=== PATIENT | female | born 1965 | race Caucasian/White ===

== ENCOUNTER → 2019-11-25 | Outpatient (CLI) | payer SELFPAY ==
[~2019-11-25] MED LIST: ACHD5005 PO; CEPH250C PO; DEXL60CA PO; DOCU100C37 PO; IBUP-1773 PO; INSU100I14 SQ; INSU100I29 SQ; IRON150C3 PO; LISI-552 PO; LURA20TA PO; METR-145 PO
--- NOTE | 2019-11-25 12:26 | Diagnostic Imaging Report ---
INDICATION: Rolled foot. Reported history of recent fracture of the 5th metatarsal.. TECHNIQUE: Three views of the left foot. CORRELATION STUDY: None. FINDINGS: There is overlying compression bandage or dressing material over the foot and lower leg. There is presence of a transversely oriented relatively nondisplaced fracture of the proximal 5th metatarsal. The alignment appears to be anatomic. No significant bridging callus formation. The remaining osseous structures otherwise appear to be intact with some mild bony demineralization present. Incidental note is made of a bipartite medial sesamoid bone of the great toe, a normal variant. There is presence of soft tissue swelling given the apparent overlying bandage material. IMPRESSION: Nondisplaced fracture involving the base of the 5th metatarsal. Associated soft tissue swelling. Dictated by: Dictated on workstation # [id number]
== END ==
LOC: RAD FS 10:26
PROVIDERS: ATTEND Nurse Practitioner
DX: S92.355A Nondisplaced fracture of fifth metatarsal bone, left foot, initial encounter for closed fracture (principal); X58.XXXA Exposure to other specified factors, initial encounter
CPT/HCPCS: 73630

== ENCOUNTER → 2019-12-16 | Outpatient (CLI) | payer SELFPAY ==
--- NOTE | 2019-12-16 09:21 | Diagnostic Imaging Report ---
INDICATION: Follow-up foot fracture. COMPARISON: 11/25/2019 FINDINGS: 3 radiographic views of the left foot were obtained and again show nonacute nondisplaced fracture of the proximal 5th metatarsal. There does appear to be intra-articular extension. Fracture line remains conspicuous. There is no significant bridging callus formation. Fracture fragments are in stable alignment. No new acute fracture or dislocation left foot is identified. Joint spaces are maintained. No unexpected radiopaque foreign bodies are seen. IMPRESSION: 1. Stable nonacute fracture of the proximal 5th metatarsal as described above. Dictated by: Dictated on workstation # [id number]
== END ==
LOC: RAD FS 08:36
PROVIDERS: ATTEND Nurse Practitioner
DX: S92.355D Nondisplaced fracture of fifth metatarsal bone, left foot, subsequent encounter for fracture with routine healing (principal)
CPT/HCPCS: 73630

== ENCOUNTER → 2020-01-06 | Outpatient (CLI) | payer SELFPAY ==
--- NOTE | 2020-01-06 09:45 | Diagnostic Imaging Report ---
EXAMINATION: Left foot at 8:31 AM INDICATION: Follow-up fracture Three views were obtained. The prior exam of 12/16/2019 noted transverse nondisplaced fracture of the base of the 5th metatarsal. That fracture line is still present. There is only minimal healing callus formation about the fracture site. No other fracture or acute bony abnormality is identified. The soft tissues are unremarkable. IMPRESSION: 1. The fracture involving the base of the 5th metatarsal seen on the prior exam remains nondisplaced. However, there is only minimal healing callus formation present. A follow-up study would be recommended for continued evaluation. 2. There is no acute bony abnormality noted. Dictated by: Dictated on workstation # [id number]
== END ==
LOC: RAD FS 08:21
PROVIDERS: ATTEND Nurse Practitioner
DX: S92.355D Nondisplaced fracture of fifth metatarsal bone, left foot, subsequent encounter for fracture with routine healing (principal)
CPT/HCPCS: 73630

== ENCOUNTER → 2020-02-03 | Outpatient (CLI) | payer OTHER ==
--- NOTE | 2020-02-03 12:52 | Diagnostic Imaging Report ---
INDICATION: Postmenopausal state. COMPARISON: None available FINDINGS: AP Spine L1-L4: [BMD (g/cm2): 0.667] [T-Score: -4.4] [Z-Score: -4.4] [BMD Previous: NA] [BMD % Change: NA] LT Hip Neck: [BMD (g/cm2): 0.896] [T-Score: -1.0] [Z-Score: -0.5] LT Hip Total: [BMD (g/cm2):0.891] [T-Score:-0.9] [Z-Score: -0.8] [BMD Previous: NA] [BMD % Change: NA] RT Hip Neck: [BMD (g/cm2):0.89] [T-Score:-1.1] [Z-Score:-0.5] RT Hip Total: [BMD (g/cm2):0.841] [T-score:-1.3] [Z-Score:-1.2] [BMD Previous:NA] [BMD % Change:NA] *Indicates significant change from prior examination based on 95% confidence level. World Health Organization criteria for BMD interpretation classify patients as Normal (T-score at or above -1.0), Osteopenic (T-score between -1.0 and -2.5) or Osteoporotic (T-score at or below -2.5). LIMITATIONS AND MODIFICATION: None. FRACTURE RISK (FRAX SCORE): The ten year probability of (%): Major Osteoporotic Fracture: [8.7] Hip Fracture: [0.5] IMPRESSION: 1. Osteoporosis. 2. Baseline examination. 3. See below National Osteoporosis Foundation guidelines on when to potentially initiate pharmacologic therapy. Based on the National Osteoporosis Foundation Guidelines, pharmacologic treatment should be initiated in any of the following, unless clinical conditions suggest otherwise: * Any patient with prior fragility fracture of the hip or vertebrae. A spine fracture indicates 5X risk for subsequent spine fracture and 2X risk for subsequent hip fracture. * Osteoporosis (T-score <-2.5). * Postmenopausal women and men age 50 and older with low bone mass/osteopenia (T-score between -1.0 and -2.5) by DXA and 10-year major osteoporotic fracture greater than 20% or a 10-year probability of hip fracture greater than 3%. These fracture risks are supplied above in the FRAX score, if applicable. * Clinician judgement and/or patient preferences may indicate treatment for people with 10-year fracture probabilities above or below these levels. Dictated by: Dictated on workstation # [id number]
== END ==
LOC: RAD 10:54
PROVIDERS: ATTEND Family Medicine
DX: Z13.820 Encounter for screening for osteoporosis (principal); M81.0 Age-related osteoporosis without current pathological fracture; Z78.0 Asymptomatic menopausal state
CPT/HCPCS: 77080

== ENCOUNTER → 2020-02-12 | Outpatient (CLI) | payer OTHER | LOC: RAD FS 13:13 | PROVIDERS: ATTEND Nurse Practitioner | DX: S92.355D Nondisplaced fracture of fifth metatarsal bone, left foot, subsequent encounter for fracture with routine healing (principal) | CPT/HCPCS: 73630 ==

== ENCOUNTER 2022-08-31 10:28 | Emergency (ER) | payer SELFPAY ==
[~2022-08-31] VITALS: Ht 157 cm; Wt 106.0 kg
[~2022-08-31 10:28] MED LIST changes: -INSU100I29 SQ; +INSU100I30 SQ; -LISI-552 PO; +LISI20TA26 PO
[2022-08-31] MEDS ORDERED: NS IV 1000 ML 1,000 ML IV STA (10:55)
--- NOTE | 2022-08-31 10:57 | ED General ---
General Chief Complaint: General Problems/Pain Stated Complaint: NINO LEG PAIN/CRAMPING/LEFT FLANK PAIN Source of Information: Patient, Family (), Old Records Exam Limitations: No Limitations History of Present Illness Date Seen by Provider: August 31, 2022 Time Seen by Provider: 10:50 Initial Comments 57-year-old female presents to the emergency department today for bilateral leg cramping, pain and pain in her left lateral chest. She states symptoms started last night and have been progressive throughout the night. She does have some pain in her legs occasionally with low potassium but she states this has not happened in quite some time. She is slightly nauseated as well. Regarding her chest pain, she is got pain in her left lateral chest described as sharp stabbing and pinpoint in 1 area. No aggravating or alleviating factors. No radiation. She has not tried anything for her symptoms. She denies any fevers or chills but does have some fatigue. She had some blood drawn at the [facility] clinic this morning for an upcoming appointment on Sunday but did not see a provider. She did not take any of her daily medications this morning secondary to nausea All other systems reviewed and negative except documented per HPI. Voice recognition software was used to help create this chart Allergies and Home Medications Allergies Uncoded Allergies: ARTIFICIAL SWEETENERS (Allergy, Intermediate, NAUSEA, 01/25/15) NAUSEA, DIARRHEA,ABD CRAMPING Patient Home Medication List Home Medication List Reviewed: Yes Cephalexin (Cephalexin) 250 Mg Capsule, 500 MG PO QID Prescribed by: DANISH GONZALEZ on 01/28/15 08 Dexlansoprazole (Dexilant) 60 Mg Ranjit., 60 MG PO, (Reported) Entered as Reported by: HORTENSIA CORDERO on 01/25/15 152 Docusate Sodium (Docusate Sodium) 100 Mg Capsule, 100 MG PO BID PRN for CO NSTIPATION Prescribed by: DANISH GONZALEZ on 01/28/15 08 Hydrocodone Bit/Acetaminophen (Lortab 5 Mg Tablet) 1 Each Tablet, 2 TAB PO Q4H PRN for PAIN Prescribed by: DANISH GONZALEZ on 01/28/15 08 Ibuprofen (Ibuprofen) 600 Mg Tablet, 600 MG PO Q6HR Prescribed by: DANISH GONZALEZ on 01/28/15 08 Insulin Aspart (Novolog Flexpen) 300 Units/3 Ml Solution, 15 UNITS SQ AC, (Reported) Entered as Reported by: HORTENSIA CORDERO on 01/25/15 1528 Insulin Detemir (Levemir Flextouch) 100 Unit/1 Ml Insuln.pen, 50 UNIT SQ HS, (Reported) Entered as Reported by: HORTENSIA CORDERO on 01/25/15 1525 Iron Polysaccharide Complex (Ferrex 150) 150 Mg Capsule, 150 MG PO BID WITH MEALS Prescribed by: DANISH GONZALEZ on 01/28/15 0809 Lisinopril (Lisinopril) 20 Mg Tablet, 20 MG PO DAILY, (Reported) Entered as Reported by: HORTENSIA CORDERO on 01/25/15 1522 Lurasidone HCl (Latuda) 20 Mg Tablet, 40 MG PO DAILY, (Reported) Entered as Reported by: HORTENSIA CORDERO on 01/25/15 1533 Metronidazole (Metronidazole) 500 Mg Tablet, 500 MG PO TID Prescribed by: DANISH GONZALEZ on 01/28/15 0809 Review of Systems Review of Systems Constitutional: see HPI Past Fcrhjrt-Dnehnz-Wrtnem Hx Patient Social History Tobacco Use?: No Use of E-Cig and/or Vaping dev: No Alcohol Use?: No Immunizations Up To Date Tetanus Booster (TDap): Unknown PED Vaccines UTD: Yes Past Medical History Asthma, Chronic Bronchitis Currently Using CPAP: No Currently Using BIPAP: No Reproductive Disorders: Yes Female Reproductive Disorders: Menstrual Problems Sexually Transmitted Disease: Yes HIV/AIDS: No UTI-Chronic Abdominal Hernia, Gastroesophageal Reflux, Gall Bladder Disease Arthritis, Fractures Diabetes, Insulin dep Cataract Loss of Vision: Denies Hearing Impairment: Hard of Hearing Anxiety, Depression Herpes Adverse Reaction/Blood Tranf: No Family Medical History Arthritis 19 MOTHER Asthma MATERNAL GRANDFATHER Cardiovascular disease 19 MOTHER (5 BYPASS) MATERNAL GRANDFATHER (4 BYPASS) Cataracts 19 MOTHER MATERNAL GRANDFATHER Completed stroke MATERNAL GRANDMOTHER Coronary thrombosis 19 MOTHER MATERNAL GRANDFATHER Deafness or hearing loss MATERNAL GRANDFATHER Diabetes mellitus 19 MOTHER (TYPE 2) MATERNAL GRANDFATHER Drug abuse 19 MOTHER G8 BROTHER Glaucoma 19 MOTHER MATERNAL GRANDFATHER Hypercholesterolemia MATERNAL GRANDFATHER Hypertension 19 MOTHER MATERNAL GRANDFATHER Myocardial infarction 19 MOTHER Neoplasm 19 MOTHER (CERVICAL AND BREAST AND LUNG) Osteoporosis 19 MOTHER Respiratory disorder 19 MOTHER (EMPHYSEMA AND COPD) Severe allergy 19 MOTHER (SEVERE ALLERGY TO ARTIFICIAL SWEETENERS) Physical Exam Vital Signs Vital Signs - First Documented 08/31/22 10:48 Temp 35.8 Pulse 128 Resp 20 B/P (MAP) 161/67 (98) Pulse Ox 94 O2 Delivery Room Air Capillary Refill : Height, Weight, BMI Height: 5'2.00" Weight: 134lbs. 0.4oz. [id number]; BMI Method: General Appearance: No Apparent Distress, WD/WN Eyes: Bilateral Eye Normal Inspection, Bilateral Eye PERRL, Bilateral Eye EOMI HEENT: Normal ENT Inspection, Pharynx Normal Neck: Full Range of Motion, Normal Inspection, Non Tender, Supple Respiratory: Chest Non Tender, Lungs Clear, Normal Breath Sounds, No Accessory Muscle Use, No Respiratory Distress Cardiovascular: No Murmur, Normal Peripheral Pulses, Tachycardia Gastrointestinal: Normal Bowel Sounds, No Organomegaly, No Pulsatile Mass, Non Tender, Soft Back: Normal Inspection, No CVA Tenderness, No Vertebral Tenderness Extremity: Normal Capillary Refill, Normal Inspection, Normal Range of Motion, Non Tender, No Calf Tenderness Neurologic/Psychiatric: Alert, Oriented x3, Normal Mood/Affect Skin: Normal Color, Warm/Dry Focused Exam Lactate Level 08/31/22 13:00: Lactic Acid Level Laboratory Tests Test 08/31/22 13:00 Progress/Results/Core Measures Suspected Sepsis SIRS Temperature: Pulse: Respiratory Rate: Laboratory Tests 08/31/22 11:16: White Blood Count 8.9 Blood Pressure / Mean: 08/31/22 13:00: Laboratory Tests 08/31/22 11:16: Creatinine 0.69, Platelet Count 163, Total Bilirubin 0.8 Results/Orders Lab Results Laboratory Tests Test 08/31/22 10:35 08/31/22 11:16 08/31/22 13:00 Range/Units Urine Color YELLOW Urine Clarity CLEAR Urine pH 6.0 5-9 Urine Specific Vera <=1.005 1.016-1.022 Urine Protein NEGATIVE NEGATIVE Urine Glucose (UA) 3+ H NEGATIVE Urine Ketones NEGATIVE NEGATIVE Urine Nitrite NEGATIVE NEGATIVE Urine Bilirubin NEGATIVE NEGATIVE Urine Urobilinogen 0.2 < = 1.0 MG/DL Urine Leukocyte Esterase NEGATIVE NEGATIVE Urine RBC (Auto) TRACE-I H NEGATIVE Urine RBC RARE /HPF Urine WBC 0-2 /HPF Urine Squamous Epithelial Cells 2-5 /HPF Urine Crystals NONE /LPF Urine Bacteria NEGATIVE /HPF Urine Casts NONE /LPF Urine Mucus NEGATIVE /LPF Urine Yeast FEW H /HPF Urine Culture Indicated NO White Blood Count 8.9 4.3-11.0 10^3/uL Red Blood Count 5.13 H 3.80-5.11 10^6/uL Hemoglobin 14.6 11.5-16.0 g/dL Hematocrit 43 35-52 % Mean Corpuscular Volume 83 80-99 fL Mean Corpuscular Hemoglobin 29 25-34 pg Mean Corpuscular Hemoglobin Concent 34 32-36 g/dL Red Cell Distribution Width 14.1 10.0-14.5 % Platelet Count 163 130-400 10^3/uL Mean Platelet Volume 9.4 9.0-12.2 fL Immature Granulocyte % (Auto) 0 % Neutrophils (%) (Auto) 87 H 42-75 % Lymphocytes (%) (Auto) 4 L 12-44 % Monocytes (%) (Auto) 8 0-12 % Eosinophils (%) (Auto) 0 0-10 % Basophils (%) (Auto) 0 0-10 % Neutrophils # (Auto) 7.8 1.8-7.8 10^3/uL Lymphocytes # (Auto) 0.4 L 1.0-4.0 10^3/uL Monocytes # (Auto) 0.7 0.0-1.0 10^3/uL Eosinophils # (Auto) 0.0 0.0-0.3 10^3/uL Basophils # (Auto) 0.0 0.0-0.1 10^3/uL Immature Granulocyte # (Auto) 0.0 0.0-0.1 10^3/uL Neutrophils % (Manual) 44 % Lymphocytes % (Manual) 4 % Monocytes % (Manual) 10 % Metamyelocytes % 1 % Band Neutrophils 41 % Platelet Estimate NORMAL Polychromasia SLIGHT Macrocytosis SLIGHT Sodium Level 132 L 135-145 MMOL/L Potassium Level 3.5 L 3.6-5.0 MMOL/L Chloride Level 97 L 98-107 MMOL/L Carbon Dioxide Level 18 L 21-32 MMOL/L Anion Gap 17 H 5-14 MMOL/L Blood Urea Nitrogen 8 7-18 MG/DL Creatinine 0.69 0.60-1.30 MG/DL Estimat Glomerular Filtration Rate 102 BUN/Creatinine Ratio 12 Glucose Level 282 H 70-105 MG/DL Calcium Level 10.2 H 8.5-10.1 MG/DL Corrected Calcium 10.3 H 8.5-10.1 MG/DL Total Bilirubin 0.8 0.1-1.0 MG/DL Aspartate Amino Transf (AST/SGOT) 43 H 5-34 U/L Alanine Aminotransferase (ALT/SGPT) 26 0-55 U/L Alkaline Phosphatase 112 40-136 U/L Troponin I < 0.30 <0.30 NG/ML Total Protein 7.3 6.4-8.2 GM/DL Albumin 3.9 3.2-4.5 GM/DL My Orders Orders - MASSIMO MARTINEZ DO Cbc With Automated Diff (08/31/22 10:55) Comprehensive Metabolic Panel (08/31/22 10:55) Ua Culture If Indicated (08/31/22 10:55) Iv/Invasive Line Insertion .IV INSERT (08/31/22 10:55) Ondansetron Injection (Zofran Injectio (08/31/22 11:00) Ns Iv 1000 Ml (Sodium Chloride 0.9%) (08/31/22 10:55) Ekg Tracing (08/31/22 10:57) Troponin I Fs (08/31/22 10:57) Chest Pa/Lat (2 View) (08/31/22 10:57) Ondansetron Injection (Zofran Injectio (08/31/22 11:13) Ct Chest W (08/31/22 11:20) Manual Differential (08/31/22 11:16) Iohexol Injection (Omnipaque 350 Mg/Ml 1 (08/31/22 12:00) Received Contrast (Hold Metformin- Contr (08/31/22 12:00) Ns (Ivpb) (Sodium Chloride 0.9% Ivpb Bag (08/31/22 12:00) Lactic Acid Analyzer (08/31/22 12:49) Blood Culture (08/31/22 12:49) Levofloxacin 500 Mg/100 Ml Iv (Levaquin (08/31/22 13:00) Medications Given in ED Current Medications Medications Dose Ordered Sig/Bobo Route Start Time Stop Time Status Last Admin Dose Admin Iohexol 100 ml ONCE ONCE IV 08/31/22 12:00 08/31/22 12:01 DC 08/31/22 11:59 75 ML Levofloxacin/ Dextrose 100 ml @ 100 mls/hr ONCE ONCE IV 08/31/22 13:00 08/31/22 13:59 08/31/22 13:08 100 MLS/HR Ondansetron HCl 8 mg ONCE ONCE IVP 08/31/22 11:00 08/31/22 11:01 DC 08/31/22 11:12 8 MG Sodium Chloride 100 ml ONCE ONCE IV 08/31/22 12:00 08/31/22 12:01 DC 08/31/22 11:59 100 ML Vital Signs/I&O 08/31/22 10:48 Temp 35.8 Pulse 128 Resp 20 B/P (MAP) 161/67 (98) Pulse Ox 94 O2 Delivery Room Air Capillary Refill : ECG Comment Sinus tachycardia 132 bpm. Left axis deviation. Poor R wave progression in precordial leads. No ST or T wave abnormalities. No ectopy. Departure Communication (Admissions) The patient is hemodynamically stable. Chest x-ray initially shows possible mass in the left lower lobe versus pneumonia. Is very rounded so went and ordered a CT scan. This shows multifocal pneumonia worse on the left side which explains the mass. With that of ordered lactate and cultures. I offered her admission after regular Zithromax and Rocephin and she declined stating she wants to go home. With that I canceled Zithromax and Rocephin we will give her a dose of IV Levaquin here and discharge her with p.o. Levaquin. She is asking for something for pain. I offered her ibuprofen or Tylenol for her body aches and she states "I can take that at home." Advised we can give her dose while she is waiting for her antibiotics to complete and she declines. Her nausea is improved with the IV Zofran provided. Her heart rate is improved somewhat with the IV fluids, down from 130 to 112. Impression Primary Impression: Community acquired pneumonia Qualified Codes: J18.9 - Pneumonia, unspecified organism Disposition: HOME, SELF-CARE Condition: Stable Admissions Decision to Admit Reason: Admit from ER (General) Departure-Patient Inst. Referrals: SELF,RHODA GIFFORD (PCP/Family) Primary Care Physician Patient Instructions: Pneumonia, Adult ED Add. Discharge Instructions: You have opted not to stay in the emergency department. You do have pneumonia that is worse on the left side but slightly on the right side as well. Take the antibiotics as prescribed until they are gone. You were given your first dose here in the emergency department. Use the nausea medicine as needed by dissolving it under your tongue. Increase your fluids at home and rest. Use ibuprofen and Tylenol as needed for body aches or pain. Urgency department for any severe concerns, specifically if you develop any severe shortness of breath. I recommend you follow-up with your primary doctor in the next 48 hours All discharge instructions reviewed with patient and/or family. Voiced understanding. Scripts Ondansetron (Ondansetron Odt) 8 Mg Tab.rapdis 8 MG SL Q6H PRN for NAUSEA/VOMITING for 5 Days, #20 TAB Prov: MASSIMO MARTINEZ DO 08/31/22 Levofloxacin (Levofloxacin) 500 Mg Tablet 500 MG PO DAILY for 7 Days, #7 TAB Prov: MASSIMO MARTINEZ DO 08/31/22 MASSIMO MARTINEZ DO August 31, 2022 10:57
[2022-08-31] MEDS ORDERED: ONDANSETRON 4 MG/2 ML (SDV) Z0FRAN IVP ONE (11:00)
[2022-08-31 11:02] LABS: BILIRUBIN,URINE NEGATIVE (NEGATIVE); CLARITY,URINE CLEAR; COLOR,URINE YELLOW; GLUCOSE, URINE (UA) 3+ (NEGATIVE); KETONES,URINE NEGATIVE (NEGATIVE); LEUKOCYTE ESTERASE ,URINE NEGATIVE (NEGATIVE); NITRITE,URINE NEGATIVE (NEGATIVE); PROTEIN,URINE NEGATIVE (NEGATIVE)
[2022-08-31] MEDS ORDERED: ONDANSETRON 4 MG/2 ML (SDV) Z0FRAN ONE (11:13)
[2022-08-31 11:14] LABS: BACTERIA,URINE NEGATIVE /HPF; RBC,URINE RARE /HPF; WBC,URINE 0-2 /HPF; YEAST,URINE FEW /HPF
--- NOTE | 2022-08-31 11:16 | Diagnostic Imaging Report ---
INDICATION: Chest pain. TECHNIQUE: PA and lateral chest obtained at 11:04 a.m. FINDINGS: Heart is normal in size. There is a focal opacity in the left lateral base which is most likely due to infiltrate, recommend follow-up until resolution to exclude underlying mass. There is no pneumothorax or pleural fluid. IMPRESSION: Left basilar opacity may represent infiltrate, underlying mass is difficult to exclude. Recommend follow-up radiographs to assure resolution. Dictated by: Dictated on workstation # [id number]
[2022-08-31 11:36] LABS: BASOPHILS % (AUTO) 0 % (0-10); EOSINOPHILS % (AUTO) 0 % (0-10); HEMATOCRIT 43 % (35-52); HEMOGLOBIN 14.6 g/dL (11.5-16.0); LYMPHOCYTES # (AUTO) 0.4 10^3/uL (1.0-4.0); LYMPHOCYTES % (AUTO) 4 % (12-44); MEAN CORPUSCULAR HEMOGLOBIN 29 pg (25-34); MEAN CORPUSCULAR HGB CONC 34 g/dL (32-36); MEAN CORPUSCULAR VOLUME 83 fL (80-99); MEAN PLATELET VOLUME 9.4 fL (9.0-12.2); MONOCYTES # (AUTO) 0.7 10^3/uL (0.0-1.0); MONOCYTES % (AUTO) 8 % (0-12); NEUTROPHILS # (AUTO) 7.8 10^3/uL (1.8-7.8); NEUTROPHILS % (AUTO) 87 % (42-75); PLATELET COUNT 163 10^3/uL (130-400); WHITE BLOOD COUNT 8.9 10^3/uL (4.3-11.0)
[2022-08-31 11:47] LABS: POTASSIUM 3.5 MMOL/L (3.6-5.0); SODIUM 132 MMOL/L (135-145)
[2022-08-31 11:48] LABS: ALANINE AMINOTRANSFERASE 26 U/L (0-55); ALBUMIN 3.9 GM/DL (3.2-4.5); ALKALINE PHOSPHATASE 112 U/L (40-136); BILIRUBIN,TOTAL 0.8 MG/DL (0.1-1.0); BUN/CREATININE RATIO 12; CALCIUM 10.2 MG/DL (8.5-10.1); CARBON DIOXIDE 18 MMOL/L (21-32); CHLORIDE 97 MMOL/L (98-107); CREATININE SERUM 0.69 MG/DL (0.60-1.30); GFR ESTIMATED 102; GLUCOSE 282 MG/DL (70-105); TOTAL PROTEIN 7.3 GM/DL (6.4-8.2)
[2022-08-31] MEDS ORDERED: NS 100 ML (IVPB) BAG IV ONE (12:00)
[2022-08-31] MEDS ORDERED: IOHEXOL 350 MG/ML 100 ML (OMNIPAQUE 350) VIAL IV ONE (12:00)
[2022-08-31] MEDS ORDERED: HOLD METFORMIN - RECEIVED CONTRAST 20 ML VIAL IV SCH (12:00)
[2022-08-31 12:06] LABS: BAND NEUTROPHILS 41 %; LYMPHOCYTES % (MANUAL) 4 %; METAMYELOCYTES % 1 %; MONOCYTES % (MANUAL) 10 %; NEUTROPHILS % (MANUAL) 44 %; PLATELET ESTIMATE NORMAL; POLYCHROMASIA SLIGHT
--- NOTE | 2022-08-31 12:44 | Diagnostic Imaging Report ---
CT CHEST W TECHNIQUE: Multiple contiguous axial images were obtained through the chest with the use of intravenous contrast. All CT scans use one or more of the following dose optimizing techniques: automated exposure control, MA and/or KvP adjustment based on a patient size and exam type, or iterative reconstruction. INDICATION: Left lower lobe mass. COMPARISON: Chest radiograph from earlier same day FINDINGS: Lungs and airway: Left lower lobe wedge-shaped subpleural consolidation is present. Nodular consolidation is also present in the right middle lobe. Pleura: No pleural effusion or pneumothorax. Heart and mediastinum: No supraclavicular or axillary lymphadenopathy. There are a few subcentimeter thyroid nodules which do not require dedicated follow-up imaging based on ACR white paper guidelines. Heart is normal in size. Normal caliber thoracic aorta. No mediastinal lymphadenopathy. No central pulmonary emboli. Upper abdomen: The liver is enlarged and has diffuse low attenuation indicative of steatosis. Cholecystectomy. Musculoskeletal: No worrisome focal osseous lesion. IMPRESSION: 1. Bilateral pulmonary consolidations are likely due to multifocal pneumonia, and this accounts for the mass seen on recent chest x-ray. Advise followup PA and lateral chest radiographs in 4 weeks after appropriate medical management to ensure resolution. 2. Hepatomegaly with diffuse steatosis. Dictated by: Dictated on workstation # [id number]
[2022-08-31] MEDS ORDERED: AZITHROMYCIN INJECTION 500 MG in NS (IVPB) 250 ML IV ONE (13:00)
[2022-08-31] MEDS ORDERED: cefTRIAXone IV/IM 1,000 MG in NS (IVPB) 50 ML IV ONE (13:00)
[2022-08-31] MEDS ORDERED: LEVO-55 PO (13:16)
[2022-08-31] MEDS ORDERED: ONDA8TAB13 SL (13:17)
[2022-08-31 14:09] VITALS: BP 161/67
== END 2022-08-31 14:10 | disposition home or self-care (01) ==
LOC: EDUNIT# 10:28 → ER FS 10:32
DX: J18.9 Pneumonia, unspecified organism (principal); E11.9 Type 2 diabetes mellitus without complications; Z79.4 Long term (current) use of insulin
CPT/HCPCS: 36415; 71046; 71260; 80053; 81000; 83605; 84484; 85007; 85027; 87040; 93005; Q9967